=== PATIENT | female | born 1995 | race Caucasian/White ===

== ENCOUNTER 2022-11-08 14:20 | Emergency (ER) | payer OTHER ==
[2022-11-08 14:30] VITALS: BP 147/83; PULSE 72; RESP 16; TEMP 98.2; BMI 27.8
[2022-11-08 15:02] LABS: EPI CELLS >36 /uL (0-25.1); HCG,QUALITATIVE URINE Negative; HYALINE CASTS 0 /uL (0-3.1); URINE APPEARANCE CLEAR; URINE BACTERIA 268 /uL (0-1359); URINE BILIRUBIN NEGATIVE (NEGATIVE); URINE COLOR YELLOW; URINE GLUCOSE (UA) NEGATIVE (NEGATIVE); URINE KETONE NEGATIVE (NEGATIVE); URINE LEUK ESTERASE 1+ (NEGATIVE); URINE NITRITE NEGATIVE (NEGATIVE); URINE PROTEIN TRACE (NEGATIVE); URINE RBC 1048 /uL (0-23.9); URINE UROBILINOGEN 0.2 mg/dL (0.2-1.0); URINE WBC 28 /uL (0-25.8)
[2022-11-08] MEDS ORDERED: IBUPROFEN 600 MG TABLET (FP) PO ONE ×2 (15:05→15:07)
== END 2022-11-08 17:26 | disposition home or self-care (01) ==
LOC: JERFT 14:20 → JER 14:20 → JERFT 17:26
DX: N94.6 Dysmenorrhea, unspecified (principal)
CPT/HCPCS: 76830-TC; 81003; 84703; 87086; 99285-25